=== PATIENT | female | born 1940 | race African-American/Black ===

== ENCOUNTER 2021-09-25 16:38 | Observation (INO) ==
[2021-09-25 20:17] LABS: BASOPHILS % (AUTO) 0.4 % (0.2-1.0); EOSINOPHILS % (AUTO) 0.4 % (0.9-2.9); HEMATOCRIT 38.1 % (36.0-47.0); HEMOGLOBIN 12.8 g/dL (12.0-16.0); LYMPHOCYTES # (AUTO) 1.4 X10^3/uL (1.3-2.9); LYMPHOCYTES % (AUTO) 21.9 % (21.0-51.0); MEAN CORPUSCULAR HEMOGLOBIN 28.1 pg (27.0-34.0); MEAN CORPUSCULAR HGB CONC 33.6 g/dL (33.0-35.0); MEAN CORPUSCULAR VOLUME 83.6 fL (80.0-100.0); MEAN PLATELET VOLUME 7.4 fL (7.4-11.0); MONOCYTES # (AUTO) 0.5 x10^3/uL (0.3-0.8); MONOCYTES % (AUTO) 7.2 % (0.0-13.0); NEUTROPHILS # (AUTO) 4.4 x10^3/uL (2.2-4.8); NEUTROPHILS % (AUTO) 70.1 % (42.0-75.0); PLATELET COUNT 248 X10^3/uL (150.0-450.0); RED BLOOD COUNT 4.56 X10^6/uL (3.5-5.4); RED CELL DISTRIBUTION WIDTH 15.3 % (11.6-16.5); WHITE BLOOD COUNT 6.3 X10^3/uL (3.6-10.0)
[2021-09-25 20:24] LABS: ALANINE AMINOTRANSFERASE 14 Units/L (12-78); ALBUMIN 2.8 g/dL (3.4-5.0); ALKALINE PHOSPHATASE 69 Units/L (46-116); ASPARTATE AMINO TRANSFERASE 18 Units/L (15-37); BLOOD UREA NITROGEN 15 mg/dL (7-18); CALCIUM 8.6 mg/dL (8.5-10.1); CHLORIDE 99 mmol/L (98-107); COR CA(FOR HYPOALB) 9.6 mg/dL (8.5-10.1); CREATININE 0.59 mg/dL (0.55-1.02); SODIUM 132 mmol/L (136-145); TOTAL PROTEIN 6.5 g/dL (6.4-8.2); eGFR NON BLACK RACES > 60 (>60)
[2021-09-25] MEDS: LR 1,000 ML IV 1,000 ML IV SCH (20:37)
[2021-09-25] MEDS: DILAUDID INJ IVP PRN (20:41)
[2021-09-25] MEDS ORDERED: K-DUR TAB 20 MEQ PO PRN (21:04)
[2021-09-25] MEDS ORDERED: POTASSIUM CHLORIDE LIQ 20 MEQ UDC PO PRN (21:04)
--- NOTE | 2021-09-25 21:47 | RAD ---
Chest AP portableIndication: Central line placementFINDINGSTunneled catheter tip is over the SVC, left subclavian approach. There is no pneumothorax, effusion or dense consolidation. Heart size is prominent.IMPRESSIONNo pneumothorax. Left subclavian catheter tip is over the SVC.Electronically signed by: JESUSITA CHAO (Sep 25, 2021 21:46:19)
[2021-09-25] MEDS: K-RIDER 10 MEQ/NS 100 ML 10 MEQ/100 ML BAG IV PRN (21:51)
[2021-09-25] MEDS: MAGNESIUM SULFATE 1 GRAM/100 mL PREMIX 1 G/100 ML BAG IV PRN ×2 (22:05→23:08)
[2021-09-25] MEDS ORDERED: BUTT CREAM (COMPOUND) TOP PRN (22:17)
[2021-09-25 22:43] VITALS: BMI 23.8
[2021-09-26] MEDS: K-RIDER 10 MEQ/NS 100 ML 10 MEQ/100 ML BAG IV PRN ×4 (02:08→17:25)
[2021-09-26 06:10] LABS: BASOPHILS % (AUTO) 0.4 % (0.2-1.0); EOSINOPHILS % (AUTO) 0.6 % (0.9-2.9); HEMATOCRIT 35.9 % (36.0-47.0); HEMOGLOBIN 12.1 g/dL (12.0-16.0); LYMPHOCYTES # (AUTO) 1.6 X10^3/uL (1.3-2.9); LYMPHOCYTES % (AUTO) 21.6 % (21.0-51.0); MEAN CORPUSCULAR HEMOGLOBIN 28.1 pg (27.0-34.0); MEAN CORPUSCULAR HGB CONC 33.7 g/dL (33.0-35.0); MEAN CORPUSCULAR VOLUME 83.5 fL (80.0-100.0); MEAN PLATELET VOLUME 7.4 fL (7.4-11.0); MONOCYTES # (AUTO) 0.6 x10^3/uL (0.3-0.8); MONOCYTES % (AUTO) 7.7 % (0.0-13.0); NEUTROPHILS # (AUTO) 5.1 x10^3/uL (2.2-4.8); NEUTROPHILS % (AUTO) 69.7 % (42.0-75.0); PLATELET COUNT 241 X10^3/uL (150.0-450.0); RED CELL DISTRIBUTION WIDTH 15.5 % (11.6-16.5); WHITE BLOOD COUNT 7.3 X10^3/uL (3.6-10.0)
[2021-09-26 06:21] LABS: ALANINE AMINOTRANSFERASE 12 Units/L (12-78); ALBUMIN 2.4 g/dL (3.4-5.0); ALKALINE PHOSPHATASE 59 Units/L (46-116); ASPARTATE AMINO TRANSFERASE 18 Units/L (15-37); BLOOD UREA NITROGEN 13 mg/dL (7-18); CARBON DIOXIDE 21.7 mmol/L (21-32); CHLORIDE 100 mmol/L (98-107); COR CA(FOR HYPOALB) 9.3 mg/dL (8.5-10.1); CREATININE 0.52 mg/dL (0.55-1.02); MAGNESIUM 2.2 mg/dL (1.7-2.9); SODIUM 132 mmol/L (136-145); TOTAL PROTEIN 5.7 g/dL (6.4-8.2); eGFR NON BLACK RACES > 60 (>60)
[2021-09-26] MEDS: POTASSIUM CHLORIDE LIQ 20 MEQ UDC PO SCH ×2 (06:24→17:40)
[2021-09-26 06:28] LABS: BILIRUBIN,URINE NEGATIVE (NEGATIVE); BLOOD/HEMOGLOBIN,URINE 2+ (NEGATIVE); GLUCOSE, URINE NEGATIVE (NEGATIVE); KETONES,URINE 1+ (NEGATIVE); LEUKOCYTE ESTERASE ,URINE 3+ (NEGATIVE); NITRITES,URINE NEGATIVE (NEGATIVE); PROTEIN,URINE 1+ (NEGATIVE); UROBILINOGEN,URINE 1+ (NORMAL)
[2021-09-26 06:32] LABS: APPEARANCE,URINE HAZY (CLEAR); COLOR,URINE YELLOW (YELLOW)
[2021-09-26 06:37] LABS: AMORPHOUS SEDIMENT,UR TRACE /HPF (NEGATIVE); BACTERIA,URINE 2+ /HPF (NEGATIVE); SQUAMOUS EPITHELIAL CELL,UR FEW /HPF (NEGATIVE)
[2021-09-26] MEDS ORDERED: CIPRO TAB 500 MG PO SCH (09:00)
[2021-09-26] MEDS: LR 1,000 ML IV 1,000 ML IV SCH ×2 (11:19→19:50)
--- NOTE | 2021-09-26 11:45 | CT ---
HISTORYISCHEMIC LEGS BILATERALLYSTUDYCTA abdomen, pelvis, and bilateral lower extremities without and with IV contrastCOMPARISONChest x-ray from previous dayTECHNIQUEMultiple axial images of the abdomen, pelvis, and bilateral lower extremities were obtained prior to and following the administration of IV contrast. 150 cc Omnipaque 350 IV contrast 3D reconstructions were performed utilizing radial maximum intensity projection imaging. Dose reduction techniques including Automated Exposure Control (AEC) and adjustment of mA and kV were utilized.FINDINGSNearly the entirety of the chest is included on the study. Borderline CHF changes are suspected. Mild dependent atelectasis is seen. Trace pleural fluid is suspected. There is mild increased enhancement throughout the esophagus. Consider possible esophagitis but no lymphadenopathy is seen in the visualized portions of the chest. The thoracic aorta is normal in size without evidence of dissection. There is no suggestion of a pulmonary embolus. Several old healed or partially healed right rib fractures are seen.Bones appear osteopenic. There is an L1 compression fracture that appears recent. It has approximately 25 percent loss of height. The posterior cortex is slightly displaced into the central canal without suggestion of significant central canal stenosis. No pelvic or hip fracture is identified. Patient has a right TKA which causes artifact limiting evaluation at this level.Heterogeneous enhancement of the spleen is due to the early phase of contrast enhancement. Possible fatty infiltration of the liver. There is cholelithiasis without suggestion of cholecystitis. No biliary ductal dilation is seen. Pancreas and adrenal glands appear normal.1.2 cm simple appearing cyst is seen in the mid right kidney. Sub cm likely benign cyst is seen in the left kidney. Kidneys appear to be excreting contrast at time of imaging. No renal stones are seen on the unenhanced series. Sidhu catheter is seen in the bladder with a small amount of air. No bladder wall thickening is seen.There is a linear dense foreign body within the stool in the rectum. This is probably a small bone fragment. It measures approximately 3.0 cm in length. There is mild left-sided constipation. There may have been prior right hemicolectomy. No evidence of bowel obstruction or colitis.Abdominal aorta: Abdominal aorta is normal in size. Minimal atherosclerotic plaque is seen. No stenosis is seen of the SMA. There is negligible stenosis at the origin of the celiac axis. No significant renal artery stenosis is seen. ANDIE enhances normally.Common iliac arteries: Mild diffuse plaque causes little little stenosis in the right common iliac artery. In the proximal aspect of the left common iliac artery, there is a short area of stenosis is likely in the 70 percent range. It is partially calcified.External iliac arteries: Mild plaque is seen, right greater than left, but no hemodynamically significant stenosis is seen.Right lower extremity: No right CALL CENTER DISPATCHER stenosis. Mild partially calcified plaque in the proximal SFA causes no significant stenosis. Similar mild plaque is seen scattered throughout the right SFA course. Artifact obscures the right popliteal artery but distal right popliteal artery appears normal. Scattered plaque is seen throughout the three-vessel runoff but all 3 vessels are seen enhancing at the ankle.Left lower extremity: Mild stenoses are seen in the left CALL CENTER DISPATCHER and SFA. Small focus of calcified plaque in the mid left popliteal artery causes less than 20 percent stenosis. Diffuse calcified plaque is seen in the left three-vessel runoff but all 3 vessels are seen enhancing at the ankle. There is early venous enhancement in the left lower leg and an AV fistula in the anterior tibial region should be given consideration.IMPRESSIONDiffuse atherosclerotic plaque is seen in the bilateral lower extremities without suggestion of hemodynamically significant stenosis. Three-vessel runoff is seen enhancing at both ankles on the initial arterial phase series.There is early venous enhancement seen in the left lower leg, asymmetric from the right leg. This raises concern for possible AV fistula in the anterior tibial region of the left leg.There is probable 70 percent stenosis in the proximal left common iliac artery.Probable 3.0 mm tiny bone fragment within the stool in the rectum.There is cholelithiasis without evidence of cholecystitis.Likely recent 25 percent compression deformity of L1 without suggestion of significant central canal stenosis at this level.Possible esophagitis changes.Borderline CHF and trace pleural effusions.Electronically signed by: Arsalan Ko (Sep 26, 2021 11:42:52)
[2021-09-26] MEDS ORDERED: ATIVAN TAB 1 MG PO PRN (12:01)
[2021-09-26] MEDS: ATIVAN INJ 2 MG VIAL IVP PRN (12:55)
[2021-09-26] MEDS: LOVENOX INJ 40 MG SYR SC SCH (13:06)
[2021-09-26] MEDS: LEVAQUIN PREMIX IV 500 MG 500 MG/100 ML BAG IV SCH (13:06)
--- NOTE | 2021-09-26 14:03 | NOTE.SOAP ---
Soap Note Note for Day of Date of Exam: 09/26/21 Subjective Data Subjective Data: Patient with dementia and non-healing wound to the left heel. Family says that she uses her legs to help pivot. Objective Data Temperature: 98.0 F Pulse Rate: 84 Respiratory Rate: 18 Blood Pressure: 129/69 O2 Sat by Pulse Oximetry: 96 Objective Data: unchanged , CTA shows > 70 % stenosis of the left common iliac artery and diffuse disease distally Assessment Assessment: Not healing wound to the left heel. significant stenosis left common iliac artery Plan Plan: will plan left iliac stenting ,aortogram , left lower extremity arteriogram tomorrow
--- NOTE | 2021-09-26 14:12 | DR.OPNOTE ---
OP NOTE Pre-Op Diagnosis: non- healing ulce left heel, no IV access Post-Op Diagnosis: same Procedure Date Date Of Procedure: 09/25/21 Procedure: This patient was placed in Trendelenburg position. The left chest and left neck prepped and draped in sterile fashion. Timeout done . The skin underlying the left clavicle infiltrated with 1% Xylocaine . 16 gauge needle used to puncture the left subclavian vein and guide wire placed without difficulty. Incision made over the guide wire with a number 11 knife blade and Dilator placed over the wire into the left subclavian vein. Dilator was removed and the triple Lumen catheter threaded over the wire into the left subclavian vein. Guide wire removed and all ports aspirated of blood and flushed with heparinized saline . The catheter securd to the skin with interrupted silk sutures and post-procedure chest x-ray showed no pneumothorax. Type of Anesthesia: Local (8 cc 1 % Xylocaine) Specimen/Pathology: none Total Amount of Fluid Infused:: 0 Urine output: 0 EBL: minimal Complications:: none, CXR shows no pneumothorax Needle/Sponge Count:: correct Disposition/Condition: Pt. tolerated procedure without difficulty. Extubated in the OR and taken to PACU in stable condition.
[2021-09-26] MEDS: DILAUDID INJ IVP PRN (23:45)
[2021-09-27] MEDS: LOPRESSOR TAB 50 MG PO SCH ×2 (00:23→10:11)
[2021-09-27] MEDS: DILAUDID INJ IVP PRN ×3 (06:26→16:50)
[2021-09-27] MEDS ORDERED: HEPARIN SODIUM INJ 5000 UNITS ONE (06:58)
[2021-09-27] MEDS ORDERED: HEPARIN SODIUM IN D5W 0 UNITS/0 ML BAG ONE (06:59)
[2021-09-27] MEDS ORDERED: MARCAINE 0.5% ONE (07:01)
[2021-09-27] MEDS ORDERED: KETALAR ONE (07:13)
[2021-09-27] MEDS ORDERED: FENTANYL VIAL INJ 100 mcg ONE (07:13)
--- NOTE | 2021-09-27 08:01 | RAD ---
HISTORYShortness of breathSTUDYChest AP [id number]/25/2020FINDINGSTher e is a left-sided central line with its tip in the expected position of superior vena cava. Heart size is normal. Annamaria are normal. Lungs are free of acute infiltrates. No pleural effusion or pneumothorax is identified. Bony thorax is unremarkable.IMPRESSIONLungs clearElectronically signed by: CARINA CAVAZOS (Sep 27, 2021 07:59:45)
[2021-09-27 08:37] LABS: BLOOD UREA NITROGEN 12 mg/dL (7-18); CALCIUM 7.9 mg/dL (8.5-10.1); CHLORIDE 98 mmol/L (98-107); COR NA(FOR HYPERGLY) 132 mmol/L (136-145); CREATININE 0.85 mg/dL (0.55-1.02); SODIUM 131 mmol/L (136-145); eGFR NON BLACK RACES > 60 (>60)
[2021-09-27] MEDS ORDERED: LASIX IVP ONE ×3 (09:00→21:53)
[2021-09-27] MEDS: LEVAQUIN PREMIX IV 500 MG 500 MG/100 ML BAG IV SCH (10:06)
[2021-09-27] MEDS: LOVENOX INJ 40 MG SYR SC SCH (10:12)
[2021-09-27] MEDS: LR 1,000 ML IV 1,000 ML IV SCH ×2 (11:12)
[2021-09-27] MEDS ORDERED: LOPRESSOR INJ 5 MG AMP IVP NR ×2 (12:00→12:06)
[2021-09-27] MEDS: ATIVAN INJ 2 MG VIAL IVP PRN ×2 (12:48→19:25)
[2021-09-27] MEDS: POTASSIUM CHLORIDE LIQ 20 MEQ UDC PO SCH ×2 (16:16→17:26)
--- NOTE | 2021-09-27 21:56 | NOTE.SOAP ---
Soap Note Note for Day of Date of Exam: 09/27/21 Subjective Data Subjective Data: The patient was scheduled this AM For revascularization of the left leg to include stenting of the left iliac artery. When the OR staff arrived to take the patient to the operating room she was " gurgling" .Repeat BNP was elevated at greater than 800. CXR was interpreted by radiologist as normal. Cardiac echo was only remarkable for moderate pulmonary hypertension amd Grade I left ventricular diastolic dysfunction . Initially had O2 saturation of 82 % which resolved with 2 liters on oxygen by nasal canula. After testing was done that evening I examined the patient and she had the the same " gurgling " sound which appeared to be from drainage in the back of her throat which resolved with suction. Objective Data Temperature: 99.6 F Pulse Rate: 106 Respiratory Rate: 23 Blood Pressure: 151/61 O2 Sat by Pulse Oximetry: 98 Objective Data: Lungs clear, Pharyngeal drainage , no JVD distention. Assessment Assessment: Surgery cancelled today. Will be re-scheduled for tomorrow. Will give additional 40 mg IV Lasix this evening and repeat CXR, BNP and BMP in the AM prior to surgery. Plan Plan: See assessment above
[2021-09-28] MEDS: DILAUDID INJ IVP PRN ×3 (00:30→19:40)
[2021-09-28 05:27] LABS: BLOOD UREA NITROGEN 13 mg/dL (7-18); CALCIUM 7.7 mg/dL (8.5-10.1); CARBON DIOXIDE 28.3 mmol/L (21-32); CHLORIDE 99 mmol/L (98-107); COR NA(FOR HYPERGLY) 134 mmol/L (136-145); CREATININE 0.75 mg/dL (0.55-1.02); SODIUM 134 mmol/L (136-145); eGFR NON BLACK RACES > 60 (>60)
[2021-09-28] MEDS: ATIVAN INJ 2 MG VIAL IVP PRN ×3 (06:17→23:29)
[2021-09-28] MEDS: POTASSIUM CHLORIDE LIQ 20 MEQ UDC PO SCH ×2 (07:12→17:26)
--- NOTE | 2021-09-28 07:16 | RAD ---
HISTORYPRE-OPSTUDYCHEST, 1 VIEWCOMPARISONSame day chest radiograph.TECHNIQUEAP view of the chestFINDINGSLeft-sided central line in stable position. Cardiac and mediastinal contours appear normal. There is mild right mid lung hazy opacity. No definite pleural effusion or pneumothorax.IMPRESSIONMild right mid lung hazy opacity may represent asymmetric edema or pneumonia.Electronically signed by: Ramakrishna Westfall (Sep 28, 2021 07:14:42)
[2021-09-28] MEDS: NS 1,000 ML IV 1,000 ML ONE ×2 (09:39→11:44)
[2021-09-28] MEDS ORDERED: MARCAINE 0.5% ONE (11:09)
[2021-09-28] MEDS ORDERED: HEPARIN SODIUM INJ 5000 UNITS ONE (11:09)
[2021-09-28] MEDS ORDERED: HEPARIN SODIUM IN D5W 75,000 UNITS/1,500 ML BAG ONE (11:10)
[2021-09-28] MEDS: ANCEF 1 GRAM IV PREMIX* 1 G/50 ML BAG IV ONE ×2 (11:29→11:43)
[2021-09-28] MEDS ORDERED: FENTANYL VIAL INJ 100 mcg ONE (11:33)
[2021-09-28] MEDS: LR 1,000 ML IV 1,000 ML IV SCH ×2 (11:41→15:35)
[2021-09-28] MEDS: LOVENOX INJ 40 MG SYR SC SCH (11:43)
[2021-09-28] MEDS: LIPITOR TAB 40 MG PO SCH (11:43)
[2021-09-28] MEDS: LEVAQUIN PREMIX IV 500 MG 500 MG/100 ML BAG IV SCH (11:43)
[2021-09-28] MEDS ORDERED: DIPRIVAN VIAL ONE (11:59)
[2021-09-28] MEDS ORDERED: VERSED ONE (11:59)
[2021-09-28] MEDS ORDERED: KETALAR ONE (11:59)
--- NOTE | 2021-09-28 13:14 | OR.IMMED ---
IMMEDIATE POST-OP NOTE Immediate Post-Op Note Pre-Op Diagnosis: Critical limb ischemia left lower extremity and left heel ulce r Post-Op Diagnosis: same, left common iliac stenosis, severe stenosis proximal left posterior tibial artery Procedure: diagnostic aortogram , diagnostic arteriogram left lower extremity, balloon angioplasty left proximal forest fire fighter tibial artery, angioplasty and stenting of left common iliac artery Description of Procedure: see operative summary Surgeon/Analytic Programmer: Sree Findings: as above Specimens Removed: none Estimated Blood Loss: 50 cc Drains: NONE Complications: none Progress Notes: to floor, discharge soon Condition: Stable Final Diagnosis: as above
[2021-09-28] MEDS ORDERED: LOPRESSOR INJ 5 MG AMP IVP PRN (15:30)
[2021-09-29] MEDS: LR 1,000 ML IV 1,000 ML IV SCH (03:10)
[2021-09-29] MEDS: DILAUDID INJ IVP PRN (04:03)
[2021-09-29] MEDS ORDERED: SANTYL EXT SCH (09:00)
[2021-09-29] MEDS: LEVAQUIN PREMIX IV 500 MG 500 MG/100 ML BAG IV SCH (09:52)
[2021-09-29] MEDS: LOVENOX INJ 40 MG SYR SC SCH (09:53)
[2021-09-29] MEDS: LIPITOR TAB 40 MG PO SCH (09:54)
[2021-09-29] MEDS: POTASSIUM CHLORIDE LIQ 20 MEQ UDC PO SCH (09:57)
--- NOTE | 2021-09-29 10:09 | W.DIS.FURT ---
Summary of Discharge Discharge Summary of Date Date of Exam: 09/28/21 Admission Date Date of Admission: 09/25/21 Admission Diagnosis Hospital Course: Is 81 year old female with dementia presented with a non-healing wound to her left heel and studies consistent with significant ischemia. CT angiogram demonstrated 70-80% stenosis of the left, iliac artery. On table arteriogram confirmed the significant stenosis of the left, iliac artery and in addition she had sevre stenosis of the proximal left posterior tibial artery . She underwent balloon angioplasty of the posterior tibial artery and stenting of the left iliac artery She is stable and doing well with a palpable pulse in the left posterior tibial artery . She'll be discharged on her usual medications to include Cipro 500 mg BNID for a documented urinary tract infection. She will follow up with me in one week. She's also given a prescription for Tylenol with codeine Elixir 1 to 2 teaspoons every 6 hours PRN pain. Vital Signs: Vital Signs (72 hours) 09/26/21 12:00 09/26/21 14:03 09/26/21 16:00 Temperature 97.1 F L 98.0 F 98.9 F Pulse Rate 84 Pulse Rate [Left Brachial] 82 94 H Respiratory Rate 19 18 20 Blood Pressure 129/69 Blood Pressure [Right Arm] 129/60 141/69 O2 Sat by Pulse Oximetry 96 96 93 L 09/26/21 20:00 09/26/21 23:45 09/27/21 00:00 Temperature 98.3 F 100.3 F H Pulse Rate Pulse Rate [Left Brachial] 92 H 126 H Respiratory Rate 18 20 22 Blood Pressure Blood Pressure [Right Arm] 115/59 120/73 O2 Sat by Pulse Oximetry 94 L 91 L 09/27/21 00:15 09/27/21 04:00 09/27/21 06:26 Temperature 99.3 F Pulse Rate Pulse Rate [Left Brachial] 115 H Respiratory Rate 18 17 20 Blood Pressure Blood Pressure [Right Arm] 106/72 O2 Sat by Pulse Oximetry 91 L 09/27/21 06:56 09/27/21 08:00 09/27/21 12:00 Temperature 98.9 F 97.4 F L Pulse Rate Pulse Rate [Left Brachial] 115 H 112 H Respiratory Rate 20 18 20 Blood Pressure Blood Pressure [Right Arm] 117/73 177/79 O2 Sat by Pulse Oximetry 99 100 09/27/21 12:12 09/27/21 12:42 09/27/21 16:00 Temperature 98.4 F Pulse Rate Pulse Rate [Left Brachial] 87 Respiratory Rate 20 20 20 Blood Pressure 177/79 Blood Pressure [Right Arm] 127/59 O2 Sat by Pulse Oximetry 100 09/27/21 16:50 09/27/21 17:20 09/27/21 20:00 Temperature 99.6 F Pulse Rate Pulse Rate [Left Brachial] 106 H Respiratory Rate 20 20 23 Blood Pressure Blood Pressure [Right Arm] 151/61 O2 Sat by Pulse Oximetry 98 09/27/21 22:47 09/28/21 00:00 09/28/21 00:30 Temperature 99.6 F 97.7 F Pulse Rate 106 H Pulse Rate [Left Brachial] 101 H Respiratory Rate 23 21 20 Blood Pressure 151/61 Blood Pressure [Right Arm] 148/72 O2 Sat by Pulse Oximetry 98 99 09/28/21 01:00 09/28/21 04:00 09/28/21 05:28 Temperature 99.1 F Pulse Rate Pulse Rate [Left Brachial] 105 H Respiratory Rate 20 21 20 Blood Pressure Blood Pressure [Right Arm] 125/63 O2 Sat by Pulse Oximetry 100 09/28/21 05:58 09/28/21 08:00 09/28/21 09:53 Temperature 98.5 F Pulse Rate 122 H Pulse Rate [Left Brachial] 116 H Respiratory Rate 20 20 18 Blood Pressure 116/63 Blood Pressure [Right Arm] 119/70 O2 Sat by Pulse Oximetry 99 95 09/28/21 13:25 09/28/21 13:40 09/28/21 13:55 Temperature 99.2 F 98.9 F 98.5 F Pulse Rate Pulse Rate [Left Brachial] 93 H 90 91 H Respiratory Rate 12 12 12 Blood Pressure Blood Pressure [Right Arm] 112/59 110/58 103/55 O2 Sat by Pulse Oximetry 100 100 100 09/28/21 14:10 09/28/21 14:25 09/28/21 15:25 Temperature 98.0 F 98.0 F 98.8 F Pulse Rate Pulse Rate [Left Brachial] 93 H 102 H 117 H Respiratory Rate 12 18 18 Blood Pressure Blood Pressure [Right Arm] 107/65 166/94 169/84 O2 Sat by Pulse Oximetry 99 100 99 09/28/21 15:56 09/28/21 16:00 09/28/21 16:25 Temperature 99.0 F 99.0 F Pulse Rate Pulse Rate [Left Brachial] 93 H 93 H Respiratory Rate 20 22 Blood Pressure 177/89 Blood Pressure [Right Arm] 128/58 128/58 O2 Sat by Pulse Oximetry 100 100 09/28/21 17:25 09/28/21 18:25 09/28/21 19:40 Temperature 97.2 F L 97.9 F Pulse Rate Pulse Rate [Left Brachial] 121 H 98 H Respiratory Rate 21 22 20 Blood Pressure Blood Pressure [Right Arm] 153/70 146/70 O2 Sat by Pulse Oximetry 100 100 09/28/21 20:10 09/29/21 00:00 09/29/21 04:00 Temperature 98.2 F 98.3 F Pulse Rate Pulse Rate [Left Brachial] 100 H 110 H Respiratory Rate 20 22 23 Blood Pressure Blood Pressure [Right Arm] 132/73 143/83 O2 Sat by Pulse Oximetry 100 100 09/29/21 04:03 09/29/21 04:33 09/29/21 07:24 Temperature 98.0 F Pulse Rate Pulse Rate [Left Brachial] 90 Respiratory Rate 20 20 19 Blood Pressure Blood Pressure [Right Arm] 102/54 O2 Sat by Pulse Oximetry 100 Labs: Laboratory Last Values WBC 7.3 X10^3/uL (3.6-10.0) 09/26/21 05:39 RBC 4.30 X10^6/uL (3.5-5.4) 09/26/21 05:39 Hgb 12.1 g/dL (12.0-16.0) 09/26/21 05:39 Hct 35.9 % (36.0-47.0) L 09/26/21 05:39 MCV 83.5 fL (80.0-100.0) 09/26/21 05:39 MCH 28.1 pg (27.0-34.0) 09/26/21 05:39 MCHC 33.7 g/dL (33.0-35.0) 09/26/21 05:39 RDW 15.5 % (11.6-16.5) 09/26/21 05:39 Plt Count 241 X10^3/uL (150.0-450.0) 09/26/21 05:39 MPV 7.4 fL (7.4-11.0) 09/26/21 05:39 Neut % (Auto) 69.7 % (42.0-75.0) 09/26/21 05:39 Lymph % (Auto) 21.6 % (21.0-51.0) 09/26/21 05:39 Drew % (Auto) 7.7 % (0.0-13.0) 09/26/21 05:39 Eos % (Auto) 0.6 % (0.9-2.9) L 09/26/21 05:39 Baso % (Auto) 0.4 % (0.2-1.0) 09/26/21 05:39 Neut # (Auto) 5.1 x10^3/uL (2.2-4.8) H 09/26/21 05:39 Lymph # (Auto) 1.6 X10^3/uL (1.3-2.9) 09/26/21 05:39 Drew # (Auto) 0.6 x10^3/uL (0.3-0.8) 09/26/21 05:39 Eos # (Auto) 0.0 x10^3/uL (0.0-0.2) 09/26/21 05:39 Baso # (Auto) 0.0 X10^3/uL (0.0-0.1) 09/26/21 05:39 Absolute Nucleated RBC 0.3 /100WBC 09/26/21 05:39 Sodium 134 mmol/L (136-145) L 09/28/21 04:55 Corrected Sodium 134 mmol/L (136-145) L 09/28/21 04:55 Potassium 3.8 mmol/L (3.5-5.1) 09/28/21 04:55 Chloride 99 mmol/L (98-107) 09/28/21 04:55 Carbon Dioxide 28.3 mmol/L (21-32) 09/28/21 04:55 BUN 13 mg/dL (7-18) 09/28/21 04:55 Creatinine 0.75 mg/dL (0.55-1.02) 09/28/21 04:55 Est GFR (MDRD) Af Amer > 60 (>60) 09/28/21 04:55 Est GFR (MDRD) Non-Af > 60 (>60) 09/28/21 04:55 Glucose 119 mg/dL (65-99) H 09/28/21 04:55 Calcium 7.7 mg/dL (8.5-10.1) L 09/28/21 04:55 Corrected Calcium 9.3 mg/dL (8.5-10.1) 09/26/21 05:39 Magnesium 2.2 mg/dL (1.7-2.9) 09/26/21 05:39 Total Bilirubin 0.70 mg/dL (0.2-1.0) 09/26/21 05:39 AST 18 Units/L (15-37) 09/26/21 05:39 ALT 12 Units/L (12-78) 09/26/21 05:39 Alkaline Phosphatase 59 Units/L (46-116) 09/26/21 05:39 B-Natriuretic Peptide 645 pg/mL (0-79) H* 09/28/21 04:55 Total Protein 5.7 g/dL (6.4-8.2) L 09/26/21 05:39 Albumin 2.4 g/dL (3.4-5.0) L 09/26/21 05:39 Globulin 3.3 g/dL (2.5-4.5) 09/26/21 05:39 Albumin/Globulin Ratio 0.7 Ratio (1.1-2.1) L 09/26/21 05:39 Specimen Type Catherized urine 09/26/21 06:10 Urine Color Yellow (YELLOW) 09/26/21 06:10 Urine Appearance Hazy (CLEAR) 09/26/21 06:10 Urine pH 6.0 (5.0 - 8.0) 09/26/21 06:10 Ur Specific [place] 1.020 (1.000-1.030) 09/26/21 06:10 Urine Protein 1+ (NEGATIVE) 09/26/21 06:10 Urine Glucose (UA) Negative (NEGATIVE) 09/26/21 06:10 Urine Ketones 1+ (NEGATIVE) 09/26/21 06:10 Urine Occult Blood 2+ (NEGATIVE) 09/26/21 06:10 Urine Nitrite Negative (NEGATIVE) 09/26/21 06:10 Urine Bilirubin Negative (NEGATIVE) 09/26/21 06:10 Urine Urobilinogen 1+ (NORMAL) 09/26/21 06:10 Ur Leukocyte Esterase 3+ (NEGATIVE) 09/26/21 06:10 Urine RBC 3-5 /HPF (0-3) A 09/26/21 06:10 Urine WBC 10-20 /HPF (0-5) A 09/26/21 06:10 Ur Squamous Epith Cells Few /HPF (NEGATIVE) 09/26/21 06:10 Amorphous Sediment Trace /HPF (NEGATIVE) 09/26/21 06:10 Urine Bacteria 2+ /HPF (NEGATIVE) 09/26/21 06:10 Ur Culture Indicated? Yes/culture set up 09/26/21 06:10 SARS-CoV-2 (PCR) Negative (NEGATIVE) 09/25/21 17:15 Influenza Type A (PCR) Negative (NEGATIVE) 09/25/21 17:15 Influenza Type B (PCR) Negative (NEGATIVE) 09/25/21 17:15 RSV (PCR) Negative (NEGATIVE) 09/25/21 17:15 Reason For Visit: BILATERAL LOWER EXTREMITY ISCHEMIA Discharge Date Discharge Date: 09/29/21 Discharge Diagnosis All Active Problems (Updated 09/29/21 @ 10:07 by Estuardo Balbuena) Dementia (Acute) Urinary tract infection (Acute) Critical ischemia of lower extremity (Acute) Heel ulcer (Acute) Shortness of breath (Acute) Plan of Treatment: Continue with present treatment and follow up plan. Pt is to keep follow up appointment as instructed and take medications as ordered. Discharge Medications Discharge Medications: No Known Allergies Allergy (Verified 09/25/21 19:33) CONTINUE taking the following medications donepezil 5 mg PO HS 09/26/21 [History] levetiracetam 500 mg PO BID 09/26/21 [History] lorazepam 0.5 mg PO DAILY 09/26/21 [History] meloxicam 15 mg PO DAILY 09/26/21 [History] memantine 10 mg PO BID 09/26/21 [History] metoprolol tartrate 100 mg PO BID 09/26/21 [History] New Prescriptions ciprofloxacin HCl [Cipro] 500 mg PO BID #10 tab 09/29/21 [Rx] collagenase clostridium histo. [Santyl] 1 applic TOPICAL QHS #90 g 09/29/21 [Rx] Follow up and Referral Follow Up: 1 Week Discharge Disposition Assessment: Stable no acute distress noted at discharge. Discharge Disposition: Home. See new medications. Home health for care of the left heel and to apply Santyl daily.F/U one week Discharge Plan Discharge Plan Hospital Course: Is 81 year old female with dementia presented with a non-healing wound to her left heel and studies consistent with significant ischemia. CT angiogram demonstrated 70-80% stenosis of the left, iliac artery. On table arteriogram confirmed the significant stenosis of the left, iliac artery and in addition she had sevre stenosis of the proximal left posterior tibial artery . She underwent balloon angioplasty of the posterior tibial artery and stenting of the left iliac artery She is stable and doing well with a palpable pulse in the left posterior tibial artery . She'll be discharged on her usual medications to include Cipro 500 mg BNID for a documented urinary tract infection. She will fo llow up with me in one week. She's also given a prescription for Tylenol with codeine Elixir 1 to 2 teaspoons every 6 hours PRN pain. Patient Disposition: HOME HEALTH SERVICE Condition: Stable Health Concerns: Post Hospitalization: new medications and changes needed to prevent readmission or further decline. Pt educated and given instructions on all concerns. Care Plan Goals: Problem: Pain/Alteration in Comfort Goal: Improve/ Resolve Pain; Achieve Pain Tolerance Instructions: Take pain medications as prescribed. Contact your primary care provider if your pain is unrelieved or worsens. Follow up with primary care provider as directed. Plan of Treatment: Continue with present treatment and follow up plan. Pt is to keep follow up appointment as instructed and take medications as ordered. Assessment: Stable no acute distress noted at discharge. Prescriptions: New ciprofloxacin HCl [Cipro] 500 mg tablet 500 mg PO BID Qty: 10 RF: 0 Santyl 250 unit/gram ointment 1 applic topical QHS Qty: 90 RF: 0 Continued metoprolol tartrate 100 mg tablet 100 mg PO BID RF: 0 lorazepam 0.5 mg tablet 0.5 mg PO DAILY RF: 0 meloxicam 15 mg tablet 15 mg PO DAILY RF: 0 donepezil 5 mg tablet 5 mg PO HS RF: 0 memantine 10 mg tablet 10 mg PO BID RF: 0 levetiracetam 500 mg tablet 500 mg PO BID RF: 0 Follow ups/Referrals Follow ups/Referrals: YOAN MCKENZIE [Primary Care Provider] - 1 WEEK Estuardo Balbuena [STAFF PHYSICIAN] - 10/03/21 11:30 am Instructions Instructions: Peripheral Vascular Disease, [id number], Pressure Injury, Venous Ulcer, Endovascular Therapy for Peripheral Arterial Disease Activity Restrictions/Additional Instructions: Rx written by Dr. Balbuena: Rx in discharge folder given to family. Tylenol with Codeine elixir 10cc 2 tsp PO Q6H PRN, Cipro 500mg PO BID times 5 days, Santyl: apply light coat to left lower leg ulcer Q day and cover with dry dressing. Stand Alone Forms: Precautions for COVID19, [facility], Patient Portal, Social Distancing
[2021-09-29 13:33] VITALS: BP 134/67
--- NOTE | 2021-09-29 15:47 | DR.OPNOTE ---
OP NOTE Pre-Op Diagnosis: Critical limb ischemia left leg, left heel ulcer Post-Op Diagnosis: same Procedure Date Date Of Procedure: 09/28/21 Procedure: Diagnostic aortogram, diagnostic left leg arteriogram, selective catheterization left sales marketing coordinator tibial artery, balloon angioplasty left sales marketing coordinator tibial artery , left, iliac artery stenting NARRATIVE Patient was taken to the operating suite and placed in the supine position. The right groin and entire left leg prepped and draped in sterile fashion. Ultra sonography used to identify the right common femoral artery and the skin overlying it infiltrated with 0. 5% Marcaine . Ultrasound used to guide puncture of the right common femoral artery and a 0. 012 inch guide wire placed without difficulty. Incision made over the guide wire and micro sheath placed over the guide wire into the right common femoral artery. The small guidewire exchanged for a 0. 035 inch [employer] glidewire. The micro sheath exchanged for a 5 [place] short vascular sheath . 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 The patient had been given 5000 units of IV heparin. Trailblazer 0. 018 inch catheter and the v18 control wire used to get the wire down as selective catheterization into the distal left posterior tibial artery. Short vascular sheath in the right common femoral artery exchanged for a 7 fr destination sheath which was parked just inside the left common iliac artery. The severe disease of the proximal left posterior tibial artery was ballooned open with a [employer] 2. 5 mm by 150 mm angioplasty balloon, holding it open for 1 minute. The balloon was removed and a 0. 035 in Trailblazer placed and the 0. 018 inch wire exchanged for the 0. 035 inch [employer] glidewire. The stenosis of the proximal left common iliac stenosis was pre-dilated with an 8 mm by 60 mm [employer] balloon and then a 8 mm by 37 mm [employer] stent placed over the stenosis and it expanded with and 8 mm by 40 mm balloon. Post- procedure arteriogram carried out of both the iliac stenosis and the severe disease of the proximal left posterior tibial artery with excellent results . Destination sheath pulled back into the aorta and the 0. 035 inch wire placed into the aorta and the destination sheath exchanged for an Angio-seal device used to close the puncture of the left, iliac artery the patient was taken to the same day surgery suite in good condition. Type of Anesthesia: Local (0. 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 tolerated procedure without difficulty. [facility]
== END 2021-09-29 13:00 | disposition home health service (06) ==
LOC: MED/SURG
PROVIDERS: ADMIT Surgery; ATTEND Surgery
DX: L97.428 Non-pressure chronic ulcer of left heel and midfoot with other specified severity; R06.02 Shortness of breath; I70.223 Atherosclerosis of native arteries of extremities with rest pain, bilateral legs; B96.29 Other Escherichia coli [E. coli] as the cause of diseases classified elsewhere; F03.90 Unspecified dementia, unspecified severity, without behavioral disturbance, psychotic disturbance, mood disturbance, and anxiety; E11.621 Type 2 diabetes mellitus with foot ulcer; I87.2 Venous insufficiency (chronic) (peripheral); N39.0 Urinary tract infection, site not specified